=== PATIENT | male | born 1950 | race Caucasian/White ===

== ENCOUNTER 2019-07-17 11:22 | Outpatient (CLI) | payer BC, MEDICARE ==
[~2019-07-17 11:22] MED LIST: ASPI-496 PO; CYAN10002 IM; DIPH1TAB PO; FINA5TAB4 PO; HYDROCHLOROTH12.5 MG PO; IBUP100T9 PO; LOSA100T14 PO; MULTIVITAMIN PO; OXYC-302 PO; PANT40TA5 PO; PHEN-583 PO; SIMV20TA PO; VITAMIN D PO
[2019-07-17] MEDS ORDERED: ATOR20TA PO (11:49)
[2019-07-17] MEDS ORDERED: FINA5TAB PO (11:49)
[2019-07-17] MEDS ORDERED: LOSA100T2 PO (11:49)
[2019-07-17] MEDS ORDERED: PANT40TA3 PO (11:49)
[2019-07-17 12:20] LABS: BASOPHILS # (AUTO) 0.03 x10^3/uL (0-0.1); BASOPHILS % (AUTO) 1 % (0-1); EOSINOPHILS # (AUTO) 0.04 x10^3/uL (0-0.4); EOSINOPHILS % (AUTO) 1 % (1-7); LYMPHOCYTES # (AUTO) 1.28 x10^3/uL (1-3.4); LYMPHOCYTES % (AUTO) 21 % (22-44); MD NO; MEAN CORPUSCULAR HEMOGLOBIN 32.8 pg (27.5-34.5); MEAN CORPUSCULAR HGB CONC 33.2 g/dL (33.2-36.2); MEAN CORPUSCULAR VOLUME 98.7 fL (81-97); MEAN PLATELET VOLUME 8.3 fL (7.4-10.4); MONOCYTES # (AUTO) 0.75 x10^3/uL (0.2-0.8); MONOCYTES % (AUTO) 12 % (2-9); NEUTROPHILS # (AUTO) 4.06 x10^3/uL (1.8-6.8); NEUTROPHILS % (AUTO) 66 % (42-75); PLATELET COUNT 216 x10^3/uL (130-400); RED BLOOD COUNT 4.02 x10^6/uL (4.38-5.82); RED CELL DISTRIBUTION WIDTH 13.6 % (9.4-14.8)
[2019-07-17 12:20] LABS: MICROSCOPIC NOT IND
[2019-07-17 12:26] LABS: ALANINE AMINOTRANSFERASE 33 U/L (12-78); ANION GAP 7 mmol/L (5-15); CALCIUM 9.1 mg/dL (8.5-10.1); CHLORIDE 110 mmol/L (98-107); CREATININE 1.81 mg/dL (0.7-1.3)
[2019-07-17 12:28] LABS: ALKALINE PHOSPHATASE 70 U/L (45-117); BILIRUBIN,TOTAL 0.4 mg/dL (0.2-1.0); TOTAL PROTEIN 7.8 g/dL (6.4-8.2)
[2019-07-22] MEDS ORDERED: SODIUM BICARBONATE 4.2%, 5ML ONE (07:30)
[2019-07-22] MEDS ORDERED: HEPARIN 1,000 UNITS/ML, 10ML ONE (07:30)
[2019-07-22] MEDS ORDERED: BUPIVACAINE/PF 0.5% ONE (07:30)
[2019-07-22] MEDS ORDERED: LIDOCAINE 1%, 20ML ONE (07:30)
== END 2019-07-17 23:59 | disposition home or self-care (01) ==
LOC: STAR 11:22
PROVIDERS: ATTEND Urology
DX: Z01.818 Encounter for other preprocedural examination (principal); Z11.59 Encounter for screening for other viral diseases; N35.919 Unspecified urethral stricture, male, unspecified site
CPT/HCPCS: 36415; 80053; 81003; 85025; 87086; 93005; U0001-CS

== ENCOUNTER 2019-07-22 06:58 | Day surgery (SDC) | payer BC, MEDICARE ==
[~2019-07-22] VITALS: Ht 188 cm; Wt 98.2 kg
[~2019-07-22 06:58] MED LIST changes: +ATOR20TA PO; +FINA5TAB PO; +LOSA100T2 PO; +PANT40TA3 PO
[2019-07-22] MEDS ORDERED: LACTATED RINGERS 1,000 ML IV SCH (07:22)
[2019-07-22] MEDS ORDERED: CHLORHEXIDINE 15 ML UDC MM ONE (07:30)
[2019-07-22] MEDS ORDERED: BUPIVACAINE/PF 0.5% ONE (07:34)
[2019-07-22 07:40] VITALS: BP 155/91
[2019-07-22] MEDS ORDERED: FENTANYL PF 100 MCG/2ML ONE ×4 (08:54→10:19)
[2019-07-22] MEDS ORDERED: PHENYLEPHRINE 10 MG/ML ONE (09:11)
[2019-07-22] MEDS ORDERED: SUCCINYLCHOLINE 20 MG/ML, 10ML ONE (09:11)
[2019-07-22] MEDS ORDERED: ROCURONIUM 10 MG/ML,10ML ONE (09:11)
[2019-07-22] MEDS ORDERED: ALBUTEROL SULFATE 2.5 MG/3 ML NPPB PRN (09:30)
[2019-07-22] MEDS ORDERED: hydrALAzine 20 MG/ML, 1ML IV PRN (09:30)
[2019-07-22] MEDS ORDERED: FENTANYL PF 100 MCG/2ML IV PRN (09:30)
[2019-07-22] MEDS ORDERED: PROMETHAZINE 25 MG/ML, 1ML IVPush PRN (09:30)
[2019-07-22] MEDS ORDERED: LABETALOL 5MG/ML, 20ML IV PRN (09:30)
[2019-07-22] MEDS ORDERED: HYDROmorphone 1 MG/ML, 1ML INJ IVPush PRN (09:30)
[2019-07-22] MEDS ORDERED: ACETAMINOPHEN 325 MG TABLET PO PRN (09:30)
[2019-07-22] MEDS ORDERED: MIDAZOLAM 1 MG/ML, 2ML IV PRN (09:30)
[2019-07-22] MEDS ORDERED: OXYcodone 5 MG/5 ML ORAL.SOL UDC PO PRN (09:30)
[2019-07-22] MEDS ORDERED: ONDANSETRON 2MG/ML, 2ML ONE (09:34)
[2019-07-22] MEDS ORDERED: DEXAMETHASONE 4 MG/ML, 1ML ONE (09:34)
[2019-07-22] MEDS ORDERED: CEFAZOLIN 1,000 MG ONE (09:34)
[2019-07-22] MEDS ORDERED: PROPOFOL 10 MG/ML, 20ML ONE (09:34)
[2019-07-22] MEDS ORDERED: VERAPAMIL 2.5 MG/ML, 2ML ONE (09:37)
[2019-07-22] MEDS ORDERED: methylPREDNISolone SOD SUCC 40 MG/ML ONE (09:38)
[2019-07-22] MEDS ORDERED: methylPREDNISolone SOD SUCC 125 MG/2 ML ONE (09:38)
[2019-07-22] MEDS ORDERED: OXYcodone 5 MG/5 ML ORAL.SOL UDC ONE ×2 (10:12→10:19)
[2019-07-22] MEDS ORDERED: ACETAMINOPHEN 650 MG/20.3 ML UDC ONE (10:19)
[2019-07-22] MEDS ORDERED: ATORVASTATIN 20 MG TABLET PO SCH (21:00)
[2019-07-23] MEDS ORDERED: LOSARTAN 100 MG TAB PO SCH (09:00)
[2019-07-23] MEDS ORDERED: PANTOPRAZOLE 40MG TABLET PO SCH (09:00)
[2019-07-23] MEDS ORDERED: HYDROCHLOROTHIAZIDE 12.5 MG CAPSULE PO SCH (09:00)
[2019-07-23] MEDS ORDERED: FINASTERIDE 5 MG TABLET PO SCH (09:00)
== END 2019-07-22 12:15 | disposition home or self-care (01) ==
LOC: OUT 06:58
PROVIDERS: ATTEND Urology
DX: N35.919 Unspecified urethral stricture, male, unspecified site (principal); N40.1 Benign prostatic hyperplasia with lower urinary tract symptoms; R35.1 Nocturia; N52.9 Male erectile dysfunction, unspecified; I10 Essential (primary) hypertension; E78.5 Hyperlipidemia, unspecified; K21.9 Gastro-esophageal reflux disease without esophagitis; Z79.82 Long term (current) use of aspirin; Z79.899 Other long term (current) drug therapy; Z87.891 Personal history of nicotine dependence; Z88.8 Allergy status to other drugs, medicaments and biological substances
CPT/HCPCS: 52276; 52283; C1769; J0330; J0690; J1100; J2370; J2405; J2704; J2920; J3010; J7120; J1644; J2930

== ENCOUNTER → 2019-12-21 | Outpatient (CLI) | payer BC, MEDICARE ==
[~2019-12-21] MED LIST changes: +ALLO100T30 PO; -PANT40TA5 PO; +PANT40TA6 PO
[2019-12-21 14:16] LABS: BASOPHILS % (AUTO) 1 % (0-1); EOSINOPHILS % (AUTO) 1 % (1-7); LYMPHOCYTES % (AUTO) 20 % (22-44); MEAN PLATELET VOLUME 9.1 fL (7.4-10.4); MONOCYTES % (AUTO) 11 % (2-9); NEUTROPHILS % (AUTO) 68 % (42-75); PLATELET COUNT 214 x10^3/uL (130-400); RED BLOOD COUNT 4.35 x10^6/uL (4.38-5.82); RED CELL DISTRIBUTION WIDTH 14.1 % (9.4-14.8)
[2019-12-21 14:19] LABS: MD NO; MICROSCOPIC AUTO
[2019-12-21 14:24] LABS: INTERNATIONAL NORMALIZED RATIO 0.99 (0.93-1.1); PROTHROMBIN TIME 10.5 Seconds (9.6-11.5)
[2019-12-21 14:26] LABS: ALBUMIN 4.3 g/dL (3.4-5.0); ANION GAP 7 mmol/L (5-15); CALCIUM 9.3 mg/dL (8.5-10.1); CHLORIDE 105 mmol/L (98-107)
[2019-12-21 14:29] LABS: ALANINE AMINOTRANSFERASE 39 U/L (12-78); ALKALINE PHOSPHATASE 75 U/L (45-117); BILIRUBIN,TOTAL 0.6 mg/dL (0.2-1.0); CREATININE 1.72 mg/dL (0.7-1.3)
== END | disposition home or self-care (01) ==
LOC: STAR 12:54
PROVIDERS: ATTEND Neurological Surgery
DX: Z01.818 Encounter for other preprocedural examination (principal); M51.36 Other intervertebral disc degeneration, lumbar region; I10 Essential (primary) hypertension
CPT/HCPCS: 36415; 71046; 80053; 81001; 85025; 85610; 85730; 87086; 93005

== ENCOUNTER 2019-12-28 08:00 | Outpatient (CLI) | payer BC, MEDICARE ==
[2020-01-08] MEDS ORDERED: COLC0.6T37 PO (11:07)
[2020-01-09] MEDS ORDERED: HYDR-3246 PO (09:34)
[2020-01-09] MEDS ORDERED: TIZA2CAP2 PO (09:35)
== END 2019-12-28 23:59 | disposition home or self-care (01) ==
LOC: LAB 08:00
PROVIDERS: ATTEND Neurological Surgery
DX: Z02.9 Encounter for administrative examinations, unspecified (principal)

== ENCOUNTER → 2020-03-11 | Outpatient (CLI) | payer BC, MEDICARE ==
[~2020-03-11] MED LIST changes: +COLC0.6T37 PO; +HYDR-3246 PO; +TIZA2CAP2 PO
== END | disposition home or self-care (01) ==
LOC: STAR 11:48
PROVIDERS: ATTEND Internal Medicine
DX: Z20.828 Contact with and (suspected) exposure to other viral communicable diseases (principal)
CPT/HCPCS: 87635

== ENCOUNTER 2020-03-15 10:31 | Day surgery (SDC) | payer BC, MEDICARE ==
[~2020-03-15] VITALS: Ht 188 cm; Wt 95.2 kg
[2020-03-15 10:57] VITALS: BP 146/73
[2020-03-15] MEDS ORDERED: CHLORHEXIDINE 15 ML UDC MM ONE (11:00)
[2020-03-15] MEDS ORDERED: LACTATED RINGERS 1,000 ML IV SCH (11:00)
[2020-03-15 11:02] VITALS: BP 146/73
[2020-03-15] MEDS ORDERED: ASPI81TA45 PO (11:12)
[2020-03-15] MEDS ORDERED: FENTANYL PF 250 MCG/5ML ONE (13:01)
[2020-03-15] MEDS ORDERED: DEXAMETHASONE 4 MG/ML, 1ML ONE (13:04)
[2020-03-15] MEDS ORDERED: CEFAZOLIN 1,000 MG ONE (13:04)
[2020-03-15] MEDS ORDERED: PROPOFOL 10 MG/ML, 20ML ONE (13:04)
[2020-03-15] MEDS ORDERED: ONDANSETRON 2MG/ML, 2ML ONE (13:04)
[2020-03-15] MEDS ORDERED: HYDROmorphone 1 MG/ML, 1ML INJ IVPush PRN (13:30)
[2020-03-15] MEDS ORDERED: hydrALAzine 20 MG/ML, 1ML IV PRN (13:30)
[2020-03-15] MEDS ORDERED: LABETALOL 5MG/ML, 20ML IV PRN (13:30)
[2020-03-15] MEDS ORDERED: MEPERIDINE/PF 25MG/0.5ML IVPush PRN (13:30)
[2020-03-15] MEDS ORDERED: ONDANSETRON 2MG/ML, 2ML IVPush PRN (13:30)
[2020-03-15] MEDS ORDERED: PROMETHAZINE 25 MG/ML, 1ML IVPush PRN (13:30)
[2020-03-15] MEDS ORDERED: FENTANYL PF 100 MCG/2ML IV PRN (13:30)
[2020-03-15] MEDS ORDERED: ACETAMINOPHEN 325 MG TABLET PO PRN (13:30)
[2020-03-15] MEDS ORDERED: OXYcodone 5 MG/5 ML ORAL.SOL UDC PO PRN (13:30)
[2020-03-15] MEDS ORDERED: EPHEDRINE 50 MG/ML, 1ML IVPush PRN (13:30)
[2020-03-15] MEDS ORDERED: FENTANYL PF 100 MCG/2ML ONE (13:58)
[2020-03-15] MEDS ORDERED: OXYcodone 5 MG/5 ML ORAL.SOL UDC ONE ×2 (14:09→14:13)
== END 2020-03-15 15:55 | disposition home or self-care (01) ==
LOC: OUT 10:31
PROVIDERS: ATTEND Urology
DX: N35.812 Other bulbous urethral stricture, male (principal); I10 Essential (primary) hypertension; E78.5 Hyperlipidemia, unspecified; F12.90 Cannabis use, unspecified, uncomplicated; Z88.8 Allergy status to other drugs, medicaments and biological substances; Z79.899 Other long term (current) drug therapy; Z79.82 Long term (current) use of aspirin; Z87.891 Personal history of nicotine dependence; Z98.890 Other specified postprocedural states; Z82.49 Family history of ischemic heart disease and other diseases of the circulatory system
CPT/HCPCS: 52276; J0690; J1100; J2405; J2704; J3010; J7120